=== PATIENT | female | born 1930 | race Caucasian/White ===

== ENCOUNTER 2020-01-19 16:39 | Inpatient (IN) | payer MEDICARE ==
[~2020-01-19] VITALS: Ht 175.3 cm; Wt 79.8 kg
[2020-01-19] MEDS ORDERED: ACETAMINOPHEN 325MG TABLET PO ONE (18:15)
[2020-01-19] MEDS ORDERED: TETANUS, DIPHTHERIA, PERTUSSIS VAC/PF 0.5ML (>7YR OLD) IM ONE (18:15)
[2020-01-19] MEDS ORDERED: BACITRACIN ZINC OINT UDPKT TOP ONE (18:15)
[2020-01-19] MEDS ORDERED: LEVETIRACETAM 500MG PREMIX 100 ML IV ONE (20:30)
[2020-01-19] MEDS ORDERED: NICARDIPINE 100 MG in SODIUM CHLORIDE 0.9% 60 ML IV PRN ×2 (21:15→21:45)
[2020-01-19 21:26] LABS: BASOPHILS % 0.3 % (0.0-2.0); EOSINOPHILS % 0.2 % (0.0-5.0); HEMATOCRIT. 39.6 % (36.0-48.0); HEMOGLOBIN. 13.4 g/dL (12.0-16.0); MEAN CORPUSCULAR HEMOGLOBIN 34.5 pg (28.0-32.0); MEAN CORPUSCULAR VOLUME 101.9 fL (81.0-99.0); MEAN PLATELET VOLUME 7.6 fl (7.4-10.4); MONOCYTES % 10.4 % (2.0-8.0); NEUTROPHILS % 73.1 % (40.0-76.0); PLATELET 157 x1000/uL (130-400); RED BLOOD CELL COUNT 3.89 mill/uL (4.2-5.4); RED CELL DISTRIBUTION WIDTH 16.4 % (11.6-14.6)
[2020-01-19 21:33] LABS: CHLORIDE 105 mEq/L (98-107)
[2020-01-19 21:34] LABS: INR 1.2; PROTHROMBIN TIME 12.4 sec (9.6-11.0)
[2020-01-19] MEDS ORDERED: LABETALOL 5MG/ML SYR 20 MG/4 ML SYRINGE IV ONE (22:00)
[2020-01-19] MEDS ORDERED: LEVETIRACETAM 500 MG in SODIUM CHLORIDE 0.9% 100 ML IV SCH (22:15)
[2020-01-19] MEDS ORDERED: ONDANSETRON HCL 4MG/2ML INJ IV PRN (22:15)
[2020-01-19 22:40] VITALS: BP 154/93
[2020-01-19 23:00] VITALS: BP 157/95
[2020-01-19 23:01] LABS: HEPATITIS B SURFACE ANTIGEN NEGATIVE
[2020-01-19 23:30] VITALS: BP 164/100
[2020-01-19 23:30] LABS: HEPATITIS A AB IGM NEGATIVE (NEGATIVE)
[2020-01-19] MEDS: DEXT 5%/LACTATED RINGERS 1,000 ML IV SCH (23:34)
[2020-01-19] MEDS: LEVETIRACETAM 500MG PREMIX 100 ML IV SCH (23:34)
[2020-01-19 23:42] VITALS: BP 146/88
[2020-01-19 23:45] VITALS: BP 146/96
[2020-01-20] VITALS (56 sets, daily range): BP systolic 93–154; BP diastolic 56–96
[2020-01-20 06:14] LABS: BASOPHILS % 0.9 % (0.0-2.0); EOSINOPHILS % 0.3 % (0.0-5.0); HEMATOCRIT. 35.3 % (36.0-48.0); HEMOGLOBIN. 12.2 g/dL (12.0-16.0); LYMPHOCYTES % 22.9 % (20.0-50.0); MEAN CORPUSCULAR HEMOGLOBIN 35.2 pg (28.0-32.0); MEAN CORPUSCULAR VOLUME 101.5 fL (81.0-99.0); MEAN PLATELET VOLUME 7.8 fl (7.4-10.4); MONOCYTES % 12.1 % (2.0-8.0); NEUTROPHILS % 63.8 % (40.0-76.0); PLATELET 137 x1000/uL (130-400); RED BLOOD CELL COUNT 3.48 mill/uL (4.2-5.4); RED CELL DISTRIBUTION WIDTH 16.1 % (11.6-14.6)
[2020-01-20 06:25] LABS: CHLORIDE 106 mEq/L (98-107)
[2020-01-20] MEDS ORDERED: PNEUMOCOCCAL 23-VAL P-SAC VAC 0.5 ML IM ONE (08:00)
[2020-01-20] MEDS: PANTOPRAZOLE SODIUM 40 MG/VIAL IV SCH (09:58)
[2020-01-20] MEDS: LEVETIRACETAM 500MG PREMIX 100 ML IV SCH ×2 (09:58→21:57)
[2020-01-20] MEDS ORDERED: INFLUENZA VACCINE 05/PF 0.5 ML VIAL IM ONE (10:00)
[2020-01-21] VITALS: BP 123/85
[2020-01-21 04:00] VITALS: BP 105/56
[2020-01-21] MEDS: DEXT 5%/LACTATED RINGERS 1,000 ML IV SCH (07:50)
[2020-01-21 08:00] VITALS: BP 116/62
[2020-01-21] MEDS: PANTOPRAZOLE SODIUM 40 MG/VIAL IV SCH (09:34)
[2020-01-21] MEDS: LEVETIRACETAM 500MG PREMIX 100 ML IV SCH (09:34)
[2020-01-21 12:00] VITALS: BP 135/79
[2020-01-21 16:00] VITALS: BP 149/79
[2020-01-21 20:00] VITALS: BP 159/85
[2020-01-22] VITALS: BP 140/73
[2020-01-22] MEDS: DEXT 5%/LACTATED RINGERS 1,000 ML IV SCH ×2 (02:06→17:13)
[2020-01-22] MEDS: LEVETIRACETAM 500MG PREMIX 100 ML IV SCH ×3 (02:08→20:38)
[2020-01-22 04:00] VITALS: BP 145/76
[2020-01-22 08:00] VITALS: BP 140/77
[2020-01-22] MEDS: PANTOPRAZOLE SODIUM 40 MG/VIAL IV SCH (09:17)
[2020-01-22] MEDS ORDERED: LIDOCAINE HCL 1% 20ML VIAL (Pyxis) INJ INFIL NR (11:00)
[2020-01-22 12:00] VITALS: BP 124/85
[2020-01-22 16:00] VITALS: BP 150/81
[2020-01-22 20:00] VITALS: BP 156/88
[2020-01-23] VITALS: BP 134/76
[2020-01-23 04:00] VITALS: BP 167/94
[2020-01-23] MEDS: CLONIDINE 0.1MG TABLET PO PRN ×2 (04:35→21:46)
[2020-01-23] MEDS: HYDROCODONE/ACETAMINOPHEN 5/325MG TABLET PO PRN ×2 (04:35→21:48)
[2020-01-23 08:00] VITALS: BP 124/74
[2020-01-23] MEDS: FAMOTIDINE 20MG/2ML VIAL IV SCH (08:41)
[2020-01-23] MEDS: LEVETIRACETAM 500MG PREMIX 100 ML IV SCH ×2 (08:42→20:27)
[2020-01-23 20:00] VITALS: BP 170/96
[2020-01-24] VITALS: BP 142/75
[2020-01-24] MEDS: DEXT 5%/LACTATED RINGERS 1,000 ML IV SCH ×2 (01:41→18:01)
[2020-01-24 04:00] VITALS: BP 130/69
[2020-01-24 08:00] VITALS: BP 132/74
[2020-01-24] MEDS: LEVETIRACETAM 500MG PREMIX 100 ML IV SCH ×2 (09:48→21:47)
[2020-01-24] MEDS: FAMOTIDINE 20MG/2ML VIAL IV SCH (09:48)
[2020-01-24 12:00] VITALS: BP 160/82
[2020-01-24] MEDS: ACETAMINOPHEN 325MG TABLET PO PRN (14:05)
[2020-01-24] MEDS: CLONIDINE 0.1MG TABLET PO PRN (14:06)
[2020-01-24 16:00] VITALS: BP 136/76
[2020-01-24] MEDS: HYDROCODONE/ACETAMINOPHEN 5/325MG TABLET PO PRN (18:16)
[2020-01-24 20:00] VITALS: BP 111/66
[2020-01-25] VITALS: BP 113/64
[2020-01-25 04:00] VITALS: BP 115/67
[2020-01-25 08:00] VITALS: BP 140/95
[2020-01-25] MEDS: FAMOTIDINE 20MG/2ML VIAL IV SCH (08:47)
[2020-01-25] MEDS: LEVETIRACETAM 500MG PREMIX 100 ML IV SCH ×2 (08:47→20:15)
[2020-01-25] MEDS: DEXT 5%/LACTATED RINGERS 1,000 ML IV SCH (12:21)
[2020-01-25 16:00] VITALS: BP 171/84
[2020-01-25] MEDS: CLONIDINE 0.1MG TABLET PO PRN (17:30)
[2020-01-25 20:00] VITALS: BP 139/79
[2020-01-26] VITALS: BP 161/83
[2020-01-26] MEDS: CLONIDINE 0.1MG TABLET PO PRN (00:33)
[2020-01-26 04:00] VITALS: BP 138/77
[2020-01-26 08:00] VITALS: BP 137/70
[2020-01-26] MEDS: LEVETIRACETAM 500MG PREMIX 100 ML IV SCH ×2 (08:36→21:25)
[2020-01-26] MEDS: DEXT 5%/LACTATED RINGERS 1,000 ML IV SCH ×2 (08:36→13:31)
[2020-01-26] MEDS: FAMOTIDINE 20MG/2ML VIAL IV SCH (08:36)
[2020-01-26 12:00] VITALS: BP 122/74
[2020-01-26 16:00] VITALS: BP 149/73
[2020-01-26 20:00] VITALS: BP 142/77
[2020-01-27] VITALS: BP 145/77
[2020-01-27] MEDS: HYDROCODONE/ACETAMINOPHEN 5/325MG TABLET PO PRN ×3 (00:27→21:17)
[2020-01-27 04:00] VITALS: BP 122/62
[2020-01-27 08:00] VITALS: BP 135/72
[2020-01-27] MEDS: DEXT 5%/LACTATED RINGERS 1,000 ML IV SCH (08:37)
[2020-01-27] MEDS: LEVETIRACETAM 500MG PREMIX 100 ML IV SCH (08:37)
[2020-01-27 12:00] VITALS: BP 156/76
[2020-01-27 16:00] VITALS: BP 149/75
[2020-01-27] MEDS: FAMOTIDINE 20MG TABLET PO SCH (21:16)
[2020-01-27] MEDS: LEVETIRACETAM 500MG TABLET PO SCH (21:16)
[2020-01-27 21:23] VITALS: BP 153/86
[2020-01-28] VITALS: BP 148/77
[2020-01-28 04:00] VITALS: BP 162/87
[2020-01-28 08:00] VITALS: BP 154/78
[2020-01-28] MEDS: LEVETIRACETAM 500MG TABLET PO SCH ×2 (09:40→21:09)
[2020-01-28 12:00] VITALS: BP 161/87
[2020-01-28] MEDS: CLONIDINE 0.1MG TABLET PO PRN (13:34)
[2020-01-28] MEDS: ACETAMINOPHEN 325MG TABLET PO PRN (15:42)
[2020-01-28 16:00] VITALS: BP 118/76
[2020-01-28 20:00] VITALS: BP 140/78
[2020-01-28] MEDS: FAMOTIDINE 20MG TABLET PO SCH (21:09)
[2020-01-28] MEDS: ZOLPIDEM TARTRATE 5MG TABLET PO PRN (23:01)
[2020-01-29 04:00] VITALS: BP 150/76
[2020-01-29 08:03] VITALS: BP 152/80
[2020-01-29] MEDS: LEVETIRACETAM 500MG TABLET PO SCH ×2 (09:01→20:53)
[2020-01-29 12:00] VITALS: BP 151/74
[2020-01-29 16:00] VITALS: BP 146/74
[2020-01-29] MEDS: FAMOTIDINE 20MG TABLET PO SCH (20:53)
[2020-01-29] MEDS: ACETAMINOPHEN 325MG TABLET PO PRN (22:01)
[2020-01-30] VITALS: BP 135/84
[2020-01-30 04:00] VITALS: BP 266/94
[2020-01-30] MEDS: CLONIDINE 0.1MG TABLET PO PRN (06:12)
[2020-01-30 08:00] VITALS: BP 123/77
[2020-01-30] MEDS: LEVETIRACETAM 500MG TABLET PO SCH ×2 (08:59→20:44)
[2020-01-30 12:00] VITALS: BP 156/74
[2020-01-30] MEDS ORDERED: LACTULOSE 20G/30ML UDC PO NR (13:45)
[2020-01-30 16:00] VITALS: BP 156/79
[2020-01-30 20:00] VITALS: BP 159/88
[2020-01-30] MEDS: ZOLPIDEM TARTRATE 5MG TABLET PO PRN (20:44)
[2020-01-30] MEDS: ACETAMINOPHEN 325MG TABLET PO PRN (20:44)
[2020-01-30] MEDS: FAMOTIDINE 20MG TABLET PO SCH (20:44)
[2020-01-31] VITALS: BP 136/85
[2020-01-31 04:00] VITALS: BP 122/63
[2020-01-31 08:00] VITALS: BP 149/80
[2020-01-31] MEDS: LEVETIRACETAM 500MG TABLET PO SCH ×2 (10:45→21:14)
[2020-01-31 12:00] VITALS: BP 162/89
[2020-01-31] MEDS: CLONIDINE 0.1MG TABLET PO PRN (13:00)
[2020-01-31 16:00] VITALS: BP 127/68
[2020-01-31 20:00] VITALS: BP 161/56
[2020-01-31] MEDS: ZOLPIDEM TARTRATE 5MG TABLET PO PRN (21:14)
[2020-01-31] MEDS: FAMOTIDINE 20MG TABLET PO SCH (21:14)
[2020-01-31] MEDS: ACETAMINOPHEN 325MG TABLET PO PRN (21:17)
[2020-02-01] VITALS: BP 120/67
[2020-02-01 04:00] VITALS: BP 136/73
[2020-02-01 08:00] VITALS: BP 145/77
[2020-02-01] MEDS: LEVETIRACETAM 500MG TABLET PO SCH (09:22)
[2020-02-01 12:00] VITALS: BP 149/71
[2020-02-01 14:15] VITALS: BP 149/71
== END 2020-02-01 15:40 | DRG 562 ==
LOC: ER 16:39 → 5EST 21:20 → ENRESERV 22:25 → 5EST 23:04 → 6EST 01-20 16:05
PROVIDERS: ADMIT Internal Medicine; ATTEND Internal Medicine
PROC: 0SSNXZZ Reposition Left Metatarsal-Phalangeal Joint, External Approach (ICD-10-PCS; principal; 2020-01-22)
PROC: 0HBRXZZ Excision of Toe Nail, External Approach (ICD-10-PCS; 2020-01-22)
PROC: 0HBRXZZ Excision of Toe Nail, External Approach (ICD-10-PCS; 2020-01-22)
PROC: 0HBRXZZ Excision of Toe Nail, External Approach (ICD-10-PCS; 2020-01-22)
PROC: 0HBRXZZ Excision of Toe Nail, External Approach (ICD-10-PCS; 2020-01-22)
PROC: 0HBRXZZ Excision of Toe Nail, External Approach (ICD-10-PCS; 2020-01-22)
PROC: 0HBRXZZ Excision of Toe Nail, External Approach (ICD-10-PCS; 2020-01-22)
PROC: 0HBRXZZ Excision of Toe Nail, External Approach (ICD-10-PCS; 2020-01-22)
PROC: 0HBRXZZ Excision of Toe Nail, External Approach (ICD-10-PCS; 2020-01-22)
PROC: 0HBRXZZ Excision of Toe Nail, External Approach (ICD-10-PCS; 2020-01-22)
PROC: 0HBRXZZ Excision of Toe Nail, External Approach (ICD-10-PCS; 2020-01-22)
DX: S92.335A Nondisplaced fracture of third metatarsal bone, left foot, initial encounter for closed fracture (principal); S06.6X0A Traumatic subarachnoid hemorrhage without loss of consciousness, initial encounter; E44.1 Mild protein-calorie malnutrition; S93.325A Dislocation of tarsometatarsal joint of left foot, initial encounter; S92.345A Nondisplaced fracture of fourth metatarsal bone, left foot, initial encounter for closed fracture; K80.20 Calculus of gallbladder without cholecystitis without obstruction; S01.81XA Laceration without foreign body of other part of head, initial encounter; Y93.01 Activity, walking, marching and hiking; S05.11XA Contusion of eyeball and orbital tissues, right eye, initial encounter; R26.9 Unspecified abnormalities of gait and mobility; R58 Hemorrhage, not elsewhere classified; L60.2 Onychogryphosis; M85.80 Other specified disorders of bone density and structure, unspecified site; Z20.828 Contact with and (suspected) exposure to other viral communicable diseases; W01.0XXA Fall on same level from slipping, tripping and stumbling without subsequent striking against object, initial encounter; Y92.89 Other specified places as the place of occurrence of the external cause; Z68.26 Body mass index [BMI] 26.0-26.9, adult; Y99.8 Other external cause status
CPT/HCPCS: 36415; 71045; 73630; 76700; 80053; 85025; 86705; 86709; 86803; 87340; 87426; 90686; 90715; 90732; 93005; 97110; 97162; 97166; 97530; 97535; 99291; A6261; C1893; C9113; J1953; J3490